=== PATIENT | female | born 1945 | race Caucasian/White ===

== ENCOUNTER 2016-12-03 05:40 | Day surgery (SDC) | payer OTHER ==
[~2016-12-03] VITALS: Ht 165.1 cm; Wt 63.0 kg
[~2016-12-03 05:40] MED LIST: CITALOPRAM HBR10 MG PO; LEXAPRO5 MG PO; RESTASIS 01 DROP/0.4 BOTH EYES; XIIDRA1 EACH BOTH EYES; ZYRTEC10 M3 PO
[2016-12-03 06:40] VITALS: BP 124/63
[2016-12-03 12:30] VITALS: BP 150/67
[2016-12-03 13:39] VITALS: BP 123/60
== END 2016-12-03 13:58 | disposition home or self-care (01) ==
LOC: SDC 05:40 → RAD 08:00 → SDC 08:00
DX: C50.211 Malignant neoplasm of upper-inner quadrant of right female breast (principal); J30.9 Allergic rhinitis, unspecified; Z17.0 Estrogen receptor positive status [ER+]; F41.1 Generalized anxiety disorder
CPT/HCPCS: 78195; 78999; 88305; 88307; 88331; A9541; J0131; J0690; J1100; J1170; J2250; J2405; S0020

== ENCOUNTER 2016-12-30 08:47 | Day surgery (SDC) | payer OTHER ==
[~2016-12-30] VITALS: Ht 165.1 cm; Wt 63.0 kg
[~2016-12-30 08:47] MED LIST changes: +TURMERIC500 M1 PO
== END 2016-12-30 10:30 | disposition home or self-care (01) ==
LOC: CATH 08:47
DX: I87.8 Other specified disorders of veins (principal); C50.919 Malignant neoplasm of unspecified site of unspecified female breast; Z82.49 Family history of ischemic heart disease and other diseases of the circulatory system
CPT/HCPCS: C1752; C1894; J0690; J1644; J2250; J3010; S0020

== ENCOUNTER → 2018-01-29 | Outpatient (CLI) | payer OTHER ==
[~2018-01-29] MED LIST changes: +ANASTROZOLE1 MG PO; +BREO ELLIPTA I1 EACH IH; +PROAIR HFA8.5 GM IH
== END | disposition home or self-care (01) ==
LOC: AMB 09:30
PROC: 02PYX3Z Removal of Infusion Device from Great Vessel, External Approach (ICD-10-PCS; principal; 2018-01-29)
PROC: 0JPT3WZ Removal of Totally Implantable Vascular Access Device from Trunk Subcutaneous Tissue and Fascia, Percutaneous Approach (ICD-10-PCS; principal; 2018-01-29)
DX: Z45.2 Encounter for adjustment and management of vascular access device (principal); I87.8 Other specified disorders of veins; Z92.21 Personal history of antineoplastic chemotherapy